=== PATIENT | male | born 1985 | race Caucasian/White ===

== ENCOUNTER 2018-12-19 20:47 | Emergency (ER) | payer OTHER ==
--- NOTE | 2018-12-19 20:55 | UC ---
Laceration HPI - HPI Summary HPI Summary: 1 inch arc shaped laceration right thumb near mcp joint---no bleeding superficial in depth----tetanus up to date n/m/c intact distally, cut about 1 hour ago on a dog food can- - History Of Current Complaint Chief Complaint: UCLaceration Stated Complaint: THUMB LACERATION Time Seen by Provider: 12/19/18 20:49 Hx Obtained From: Patient Laceration Location: Finger - right thumb Mechanism Of Injury: Sharp Trauma Onset/Duration: Sudden Onset Pain Intensity: 0 - Allergies/Home Medications Allergies/Adverse Reactions: Allergies Allergy/AdvReac Type Severity Reaction Status Date / Time No Known Allergies Allergy Verified 12/19/18 20:57 Home Medications: Home Medications Cetirizine* [ZyrTEC 10 MG TAB*] 12/19/18 [History] PMH/Surg Hx/FS Hx/Imm Hx Previously Healthy: No - Family History Known Family History: Positive: None - Social History Occupation: Employed Full-time Lives: With Family Alcohol Use: None Substance Use Type: None - Immunization History Most Recent Tetanus Shot: up to date Review of Systems All Other Systems Reviewed And Are Negative: Yes Constitutional: Positive: Negative Skin: Positive: Other - 1 inch not bleeding laceration arc shaped right thumb Eyes: Positive: Negative ENT: Positive: Negative Respiratory: Positive: Negative Cardiovascular: Positive: Negative Genitourinary: Positive: Negative Motor: Positive: Negative Neurovascular: Positive: Negative Musculoskeletal: Positive: Negative Neurological: Positive: Negative Psychological: Positive: Negative Is Patient Immunocompromised?: No Physical Exam Triage Information Reviewed: Yes Appearance: Well-Appearing, No Pain Distress, Well-Nourished Vital Signs Reviewed: Yes Eye Exam: Normal Eyes: Positive: Conjunctiva Clear ENT Exam: Normal ENT: Positive: Normal ENT inspection, Hearing grossly normal. Negative: Trismus , Muffled voice, Hoarse voice Dental Exam: Normal Neck exam: Normal Neck: Positive: Supple, Nontender Respiratory Exam: Normal Respiratory: Positive: Chest non-tender, No respiratory distress, No accessory muscle use Cardiovascular Exam: Normal Cardiovascular: Positive: RRR, Pulses Normal, Brisk Capillary Refill Musculoskeletal Exam: Normal Musculoskeletal: Positive: Strength Intact, ROM Intact, No Edema Neurological Exam: Normal Neurological: Positive: Alert, Muscle Tone Normal Psychological Exam: Normal Skin Exam: Other - 1 inch laceration right thumb Skin: Positive: Other Laceration Repair - Laceration Repair 1 Description: Irregular Laceration Size After Repair: Length (cm) - 2, Width (mm) - 2, Depth (mm) - 2 Modified For Repair: No Cleansing Completed Via Routine Prep: Yes Irrigation With Pressure Irrigation Device: Yes Closure Material: Skin Adhesive, SteriStrips Laceration Course/Dx - Course/Dx Course Of Treatment: skin glue instructions given---get bp rechecked with pcp in 1-2 weeks---return as needed use splint for 2-4 days - Diagnosis Provider Diagnosis: Laceration of right thumb, Hypertension Discharge - Sign-Out/Discharge Documenting (check all that apply): Patient Departure All imaging exams completed and their final reports reviewed: No Studies - Discharge Plan Condition: Stable Disposition: HOME Patient Education Materials: Hypertension (ED) Referrals: Reese Suarez MD [Primary Care Provider] - 2 Weeks (for Blood pressure recheck today bp was 144/92. This may be related to the injury---but there is no way to make a proper assessment with 1 blood pressure reading) - Billing Disposition and Condition Condition: STABLE Disposition: Home
[2018-12-19 20:57] VITALS: BP 144/92
[2018-12-19] MEDS ORDERED: Benzoin Compound STICK TOPICAL ONE (21:07)
== END 2018-12-19 21:26 | disposition home or self-care (01) ==
LOC: UCEAST 20:47
DX: S61.011A Laceration without foreign body of right thumb without damage to nail, initial encounter (principal); W26.8XXA Contact with other sharp object(s), not elsewhere classified, initial encounter; Y92.019 Unspecified place in single-family (private) house as the place of occurrence of the external cause
CPT/HCPCS: 12001; 99211; G0463